=== PATIENT | male | born 1980 | race Asian ===

== ENCOUNTER 2018-12-06 06:24 | Inpatient (IN) | payer MEDICAID ==
[~2018-12-06] VITALS: Ht 170.2 cm; Wt 83.5 kg
[~2018-12-06 06:24] MED LIST: QUET50TA PO
[2018-12-06] MEDS ORDERED: METF-960 PO (06:45)
[2018-12-06] MEDS ORDERED: TRAZ-252 PO (06:45)
[2018-12-06] MEDS ORDERED: IBUP-2271 PO (06:45)
[2018-12-06] MEDS ORDERED: BICT1TAB (06:45)
[2018-12-06] MEDS ORDERED: PROZ10 PO (06:45)
[2018-12-06 07:04] LABS: BASOPHILS % (AUTO) 0.5 % (0.0-2.0); EOSINOPHILS % (AUTO) 0.3 % (1.0-6.0); HEMOGLOBIN 15.8 g/dL (13.5-17.5); LYMPHOCYTES # (AUTO) 1.9 K/uL (1.0-4.8); LYMPHOCYTES % (AUTO) 20.4 % (22.0-44.0); MEAN CORPUSCULAR HEMOGLOBIN 30.8 pg (26.0-34.0); MEAN CORPUSCULAR HGB CONC 34.4 G/dL (31.0-37.0); MEAN CORPUSCULAR VOLUME 90 fL (80-100); MONOCYTES # (AUTO) 0.7 K/uL (0.1-1.0); MONOCYTES % (AUTO) 7.5 % (2.0-9.0); NEUTROPHILS # (AUTO) 6.8 K/uL (1.8-7.7); NEUTROPHILS % (AUTO) 71.3 % (40.0-70.0); PLATELET COUNT (AUTO) 273 K/uL (150-450); RED BLOOD CELL COUNT(AUTO) 5.13 MIL/uL (4.50-5.90); RED CELL DISTRIBUTION WIDTH 12.9 % (11.5-14.5)
[2018-12-06 07:14] LABS: ANION GAP 10 mmol/L (8-16); CALCIUM, TOTAL 10.1 mg/dL (8.8-10.5); CARBON DIOXIDE 30 mmol/L (22-29); CHLORIDE 95 mmol/L (98-107); CREATININE 1.12 mg/dL (0.60-1.30); GLOMERULAR FILTR. RATE CALC > 60 mL/min (>60); GLUCOSE,RANDOM 273 mg/dL (70-110); POTASSIUM 3.6 mmol/L (3.5-5.1); SODIUM SERUM 135 mmol/L (136-145); UREA NITROGEN, BLOOD 14 mg/dL (7-18)
[2018-12-06 07:20] LABS: ALANINE AMINOTRANSFERASE 149 U/L (12-78); ALBUMIN 4.2 g/dL (3.4-5.0); ALKALINE PHOSPHATASE 132 U/L (46-116); ASPARTATE AMINOTRANSFERASE 44 U/L (15-37); BILIRUBIN,TOTAL 0.7 mg/dL (0.1-1.0); TOTAL PROTEIN, SERUM 8.8 g/dL (6.4-8.2)
[2018-12-06 07:34] LABS: AMPHET/METH SCREEN,URINE POSITIVE (NEGATIVE); BARBITURATE SCREEN, URINE NEGATIVE (NEGATIVE); BENZODIAZEPINES SCREEN,URINE NEGATIVE (NEGATIVE); CANNABINOID SCREEN,URINE NEGATIVE (NEGATIVE); COCAINE SCREEN,URINE NEGATIVE (NEGATIVE); METHADONE SCREEN, URINE NEGATIVE (NEGATIVE); OPIATE SCREEN,URINE NEGATIVE (NEGATIVE)
[2018-12-06 07:37] LABS: PHENCYCLIDINE SCREEN,URINE NEGATIVE (NEGATIVE)
[2018-12-06 08:03] LABS: CREATINE KINASE, TOTAL ONLY 221 U/L (39-308)
[2018-12-06] MEDS ORDERED: LORazepam 2 MG/ML VIAL IM ONE (08:30)
[2018-12-06] MEDS ORDERED: AmLODIPine BESYLATE 5 MG TABLET PO ONE (09:30)
[2018-12-06] MEDS ORDERED: 0.9% SODIUM CHLORIDE 10 ML SYRINGE IVP PRN (11:30)
[2018-12-06] MEDS ORDERED: ACETAMINOPHEN 325 MG TABLET PO PRN (11:30)
[2018-12-06] MEDS ORDERED: ONDANSETRON HCL 4 MG/2 ML VIAL IVP PRN (11:30)
[2018-12-06] MEDS ORDERED: LORazepam 2 MG TABLET PO ONE (11:30)
[2018-12-06] MEDS ORDERED: NITROGLYCERIN 2% (1 GM=INCH) PACKET TP ONE (11:30)
[2018-12-06] MEDS ORDERED: ASPIRIN 325 MG TABLET PO ONE (11:30)
[2018-12-06] MEDS ORDERED: METOCLOPRAMIDE HCL 5 MG/ML 2 ML VIAL IVP PRN (15:15)
[2018-12-06] MEDS ORDERED: DICYCLOMINE HCL 10 MG CAPSULE PO PRN (15:15)
[2018-12-06] MEDS ORDERED: LORazepam 2 MG/ML VIAL IVP PRN (15:15)
[2018-12-06] MEDS ORDERED: ACETAMINOPHEN/CODEINE 300-15 MG TABLET PO PRN (15:15)
[2018-12-06] MEDS ORDERED: LOPERAMIDE HCL 2 MG CAPSULE PO PRN (15:15)
[2018-12-06] MEDS ORDERED: MAGNESIUM SULFATE 2 GM, MVI, ADULT NO.1 WITH VIT K 10 ML, THIAMINE HCL 100 MG, FOLIC AC... IV ONE ×5 (15:15)
[2018-12-06 17:11] LABS: GLUCOSE,POINT OF CARE 122 MG/DL (70-110)
[2018-12-06] MEDS: MetFORMIN HCL 500 MG TABLET PO SCH (17:48)
[2018-12-06 21:09] VITALS: BP 130/80
[2018-12-06] MEDS: TEMAZEPAM 15 MG CAPSULE PO SCH (22:00)
[2018-12-07 00:06] VITALS: BP 134/79
[2018-12-07 04:24] VITALS: BP 132/77
[2018-12-07 07:16] VITALS: BP 123/55
[2018-12-07] MEDS: MetFORMIN HCL 500 MG TABLET PO SCH ×2 (08:01→17:28)
[2018-12-07 10:55] VITALS: BP 134/96
[2018-12-07 15:22] VITALS: BP 116/76
[2018-12-07] MEDS: FLUoxetine HCL 20 MG CAPSULE PO SCH (16:07)
[2018-12-07 19:30] VITALS: BP 141/97
[2018-12-07] MEDS ORDERED: QUEtiapine FUMARATE 100 MG TABLET PO SCH (21:00)
[2018-12-07] MEDS: TEMAZEPAM 15 MG CAPSULE PO SCH (21:22)
[2018-12-08 00:06] VITALS: BP 125/71
[2018-12-08 05:02] VITALS: BP 131/78
[2018-12-08 07:27] VITALS: BP 155/97
[2018-12-08] MEDS: MetFORMIN HCL 500 MG TABLET PO SCH (07:57)
[2018-12-08] MEDS: FLUoxetine HCL 20 MG CAPSULE PO SCH (07:58)
[2018-12-08] MEDS ORDERED: FLUO-191 PO (10:18)
[2018-12-08 10:59] VITALS: BP 125/55
== END 2018-12-08 12:00 | disposition home or self-care (01) | DRG 52 ==
LOC: EMS 06:24 → 5N 18:49
PROVIDERS: ADMIT Internal Medicine; ATTEND Internal Medicine
DX: G92 Toxic encephalopathy (principal); R45.851 Suicidal ideations; F25.1 Schizoaffective disorder, depressive type; F15.10 Other stimulant abuse, uncomplicated; E11.9 Type 2 diabetes mellitus without complications; F43.10 Post-traumatic stress disorder, unspecified; I10 Essential (primary) hypertension; F17.210 Nicotine dependence, cigarettes, uncomplicated; F32.9 Major depressive disorder, single episode, unspecified; R00.0 Tachycardia, unspecified; Z91.5 Personal history of self-harm; Z79.899 Other long term (current) drug therapy
CPT/HCPCS: 93005; 96372; G0480; J2060; J3411; J3475; J3490; J7030